=== PATIENT | male | born 1975 | race American Indian/Alaskan Native ===

== ENCOUNTER 2020-06-26 16:44 | Emergency (ER) | payer SELFPAY ==
[2020-06-26] MEDS ORDERED: ONDANSETRON 4 MG/2 ML INJ IV ONE ×2 (17:11→19:16)
[2020-06-26] MEDS ORDERED: SODIUM CHLORIDE 0.9% 1000 ML 1,000 ML IV ONE ×2 (17:11→19:07)
[2020-06-26] MEDS ORDERED: MORPHINE 4 MG/1 ML INJ IV ONE ×2 (17:16→19:40)
[2020-06-26] MEDS ORDERED: FAMOTIDINE 20 MG/2 ML INJ IV ONE (17:18)
--- NOTE | 2020-06-26 17:19 | Emergency Department Report ---
ED N/V/D HPI - General Chief complaint: Nausea/Vomiting/Diarrhea Stated complaint: N/V Time Seen by Provider: 06/26/20 17:10 Source: patient Mode of arrival: Stretcher Limitations: No Limitations - History of Present Illness Initial comments: 44-year-old male with a past medical history of HIV with undetectable viral load and compliant with antiretrovirals presents to the hospital with complaints of persistent nausea vomiting with p.o. intolerance since noon. Patient also having upper gastric pain described as a gas type pain that moves around his abdomen. Vomitus is primarily green he denies hematemesis, fever, dysuria, or diarrhea. He also denies previous abdominal surgeries. He looks uncomfortable and complaints of severe nausea with mild pain. - Related Data Previous Rx's Medication Instructions Recorded Last Taken Type Ondansetron [Zofran Odt] 4 mg PO Q8HR PRN #20 tab.rapdis 06/26/20 Unknown Rx Promethazine [Phenergan] 25 mg WA Q6HR PRN #20 supp.rect 06/26/20 Unknown Rx traMADoL [Ultram 50 MG tab] 50 mg PO Q6HR PRN #20 tablet 06/26/20 Unknown Rx Allergies Allergy/AdvReac Type Severity Reaction Status Date / Time aspirin Allergy Unknown Verified 06/26/20 17:07 ED Review of Systems ROS: Stated complaint: N/V Other details as noted in HPI Comment: All other systems reviewed and negative ED Past Medical Hx - Past Medical History Previous Medical History?: Yes Hx HIV: Yes - Social History Smoking Status: Current Every Day Smoker Substance Use Type: Alcohol - Medications Home Medications: Home Medications Medication Instructions Recorded Confirmed Last Taken Type Ondansetron [Zofran Odt] 4 mg PO Q8HR PRN #20 tab.rapdis 06/26/20 Unknown Rx Promethazine [Phenergan] 25 mg WA Q6HR PRN #20 supp.rect 06/26/20 Unknown Rx traMADoL [Ultram 50 MG tab] 50 mg PO Q6HR PRN #20 tablet 06/26/20 Unknown Rx ED Physical Exam - General Limitations: No Limitations - Other Other exam information: General: Mild distress secondary to pain Head: Atraumatic Eyes: normal appearance ENT: Moist mucous membranes Neck: Normal appearance, no midline tenderness Chest: Clear to auscultation bilaterally CV: Regular rate and rhythm Abdomen: Soft, normal bowel sounds, mild midabdominal tenderness and epigastric, nondistended, no rebound or guarding Back: Normal inspection Extremity: Normal inspection, full range of motion Neuro: Alert O x 3, no facial asymmetry, speech clear, no gross motor sensory deficit Psych: Appropriate behavior Skin: No rash ED Course Vital Signs 06/26/20 06/26/20 16:59 20:26 Temperature 97.5 F L Pulse Rate 93 H 68 Respiratory 22 16 Rate Blood Pressure 131/81 Blood Pressure 124/78 [Left] O2 Sat by Pulse 100 94 Oximetry ED Medical Decision Making - Lab Data Result diagrams: 06/26/20 17:50 06/26/20 17:50 Lab Results 06/26/20 06/26/20 06/26/20 Range/Units 17:50 17:50 19:49 WBC 6.4 (4.5-11.0) K/mm3 RBC 4.35 (3.65-5.03) M/mm3 Hgb 15.9 H (11.8-15.2) gm/dl Hct 43.5 (35.5-45.6) % MCV 100 H (84-94) fl MCH 37 H (28-32) pg MCHC 37 H (32-34) % RDW 13.1 L (13.2-15.2) % Plt Count 306 (140-440) K/mm3 Lymph % (Auto) 31.2 (13.4-35.0) % [place] % (Auto) 4.3 (0.0-7.3) % Eos % (Auto) 0.1 (0.0-4.3) % Baso % (Auto) 0.3 (0.0-1.8) % Lymph # (Auto) 2.0 (1.2-5.4) K/mm3 Clay # (Auto) 0.3 (0.0-0.8) K/mm3 Eos # (Auto) 0.0 (0.0-0.4) K/mm3 Baso # (Auto) 0.0 (0.0-0.1) K/mm3 Add Manual Diff Complete Seg Neutrophils % 65.6 (40.0-70.0) % Seg Neutrophils # 4.4 (1.8-7.7) K/mm3 Sodium 135 L (137-145) mmol/L Potassium 3.7 (3.6-5.0) mmol/L Chloride 97.8 L (98-107) mmol/L Carbon Dioxide 20 L (22-30) mmol/L Anion Gap 21 mmol/L BUN 10 (9-20) mg/dL Creatinine 1.0 (0.8-1.3) mg/dL Estimated GFR > 60 ml/min BUN/Creatinine Ratio 10 % Glucose 101 H (75-100) mg/dL Calcium 10.3 H (8.4-10.2) mg/dL Total Bilirubin 0.70 (0.1-1.2) mg/dL AST 17 (5-40) units/L ALT 11 (7-56) units/L Alkaline Phosphatase 87 (35-129) units/L Total Protein 7.8 (6.3-8.2) g/dL Albumin 4.2 (3.9-5) g/dL Albumin/Globulin Ratio 1.2 % Lipase 39 (13-60) units/L Urine Color Straw (Yellow) Urine Turbidity Clear (Clear) Urine pH 8.0 H (5.0-7.0) Ur Specific [place] 1.040 H (1.003-1.030) Urine Protein <15 mg/dl (Negative) mg/dL Urine Glucose (UA) Neg (Negative) mg/dL Urine Ketones 80 (Negative) mg/dL Urine Blood Neg (Negative) Urine Nitrite Neg (Negative) Urine Bilirubin Neg (Negative) Urine Urobilinogen < 2.0 (<2.0) mg/dL Ur Leukocyte Esterase Neg (Negative) Urine WBC (Auto) < 1.0 (0.0-6.0) /HPF Urine RBC (Auto) 1.0 (0.0-6.0) /HPF U Epithel Cells (Auto) < 1.0 (0-13.0) /HPF Urine Mucus Few /HPF - Radiology Data Radiology results: report reviewed CT ABDOMEN AND PELVIS WITH CONTRAST INDICATION / CLINICAL INFORMATION: n,v abd pain. TECHNIQUE: Axial CT images were obtained through the abdomen and pelvis after IV contrast. All CT scans at this location are performed using CT dose reduction for ALARA by means of automated exposure control. COMPARISON: None available. FINDINGS: LOWER CHEST: Bibasilar atelectasis. LIVER: No significant abnormality. GALLBLADDER: No significant abnormality. BILE DUCTS: No significant abnormality. PANCREAS: No significant abnormality. SPLEEN: No significant abnormality. ADRENALS: No significant abnormality. RIGHT KIDNEY / URETER: Nonobstructive 5 mm calcified right pelvicalyceal stone. No evidence of hydroureteronephrosis. LEFT KIDNEY / URETER: No significant abnormality. STOMACH / SMALL BOWEL: Small hiatal hernia. COLON: No significant abnormality. APPENDIX: No significant abnormality. PERITONEUM: No free fluid. No free air. No fluid collection. LYMPH NODES: No significant adenopathy. AORTA / ARTERIES: No significant abnormality. IVC / VEINS: No significant abnormality. URINARY BLADDER: No significant abnormality. REPRODUCTIVE ORGANS: Small right hydrocele. ADDITIONAL FINDINGS: None. SKELETAL SYSTEM: 1 cm sclerotic focus of the right iliac may be a large bone island. Follow-up imaging may be useful to determine stability. Left-sided pars defect at L5-S1. Multilevel degenerative changes are noted of the spine. IMPRESSION: 1. No significant acute abnormality. 2. Nonobstructive right 5 mm calcified pelvicalyceal stone. 3. The gallbladder and appendix are unremarkable. - Medical Decision Making pt required multiple doses of antiemetics, morphine, as well as normal saline for improvement in symptoms. Patient is feeling much better with ED treatment. Labs, UA, CT abdomen pelvis with IV contrast did not show any acute surgical or infectious abnormality. Patient tolerating fluid intake p.o. prior to discharge. Patient will be discharged with diagnosis of vomiting/gastroenteritis with subsequent dehydration and discharged home with symptomatic treatment Critical Care Time: No Critical care attestation.: If time is entered above; I have spent that time in minutes in the direct care of this critically ill patient, excluding procedure time. ED Disposition Clinical Impression: Vomiting, Dehydration, HIV (human immunodeficiency virus infection), Right kidney stone Disposition: DC- TO HOME OR SELFCARE Is pt being admited?: No Condition: Stable Instructions: Acute Nausea and Vomiting (ED), Kidney Stones (ED) Additional Instructions: Take the medication as prescribed. Follow-up with your doctor or doctor/clinic provided. Return if symptoms worsen as indicated by your discharge instructions. Take the copy of your CAT scan report to your follow-up visit with your primary care doctor. Also recommend that he follow-up with urologist regarding your kidney stone. Prescriptions: Promethazine [Phenergan] 25 mg WA Q6HR PRN #20 supp.rect PRN Reason: Nausea And Vomiting traMADoL [Ultram 50 MG tab] 50 mg PO Q6HR PRN #20 tablet PRN Reason: Pain Ondansetron [Zofran Odt] 4 mg PO Q8HR PRN #20 tab.rapdis PRN Reason: Nausea And Vomiting Referrals: PRIMARY CARE, [Primary Care Provider] - 3-5 Days [facility] [Provider Group] - 3-5 Days INOCENCIO PADILLA MD [Staff Physician] - 3-5 Days SARAY GOODMAN MD [Staff Physician] - 3-5 Days Time of Disposition: 22:24
[2020-06-26 18:06] LABS: Eosinophils % (Auto) 0.1 % (0.0-4.3); Monocytes # (Auto) 0.3 K/mm3 (0.0-0.8); Monocytes % (Auto) 4.3 % (0.0-7.3)
[2020-06-26 18:20] LABS: Alanine Aminotransferase 11 units/L (7-56); Albumin 4.2 g/dL (3.9-5); BUN/Creatinine Ratio 10; Blood Urea Nitrogen 10 mg/dL (9-20); Calcium 10.3 mg/dL (8.4-10.2); Hemolysis Index 4
[2020-06-26 18:52] LABS: Hemoglobin 15.9 gm/dl (11.8-15.2); Red Blood Count 4.35 M/mm3 (3.65-5.03)
[2020-06-26 18:53] LABS: Basophils % (Auto) 0.3 % (0.0-1.8); Hematocrit 43.5 % (35.5-45.6); Lymphocytes % (Auto) 31.2 % (13.4-35.0); Mean Corpuscular HGB Conc 37 % (32-34); Mean Corpuscular Volume 100 fl (84-94); Mean Platelet Volume 8.4 fl (6-12); Platelet Count 306 K/mm3 (140-440); Red Cell Distribution Width 13.1 % (13.2-15.2)
[2020-06-26] MEDS ORDERED: ONDANSETRON 4 MG/2 ML INJ ONE (19:18)
--- NOTE | 2020-06-26 20:07 | Cat Scan Report ---
CT ABDOMEN AND PELVIS WITH CONTRAST INDICATION / CLINICAL INFORMATION: n,v abd pain. TECHNIQUE: Axial CT images were obtained through the abdomen and pelvis after IV contrast. All CT scans at this location are performed using CT dose reduction for ALARA by means of automated exposure control. COMPARISON: None available. FINDINGS: LOWER CHEST: Bibasilar atelectasis. LIVER: No significant abnormality. GALLBLADDER: No significant abnormality. BILE DUCTS: No significant abnormality. PANCREAS: No significant abnormality. SPLEEN: No significant abnormality. ADRENALS: No significant abnormality. RIGHT KIDNEY / URETER: Nonobstructive 5 mm calcified right pelvicalyceal stone. No evidence of hydrou reteronephrosis. LEFT KIDNEY / URETER: No significant abnormality. STOMACH / SMALL BOWEL: Small hiatal hernia. COLON: No significant abnormality. APPENDIX: No significant abnormality. PERITONEUM: No free fluid. No free air. No fluid collection. LYMPH NODES: No significant adenopathy. AORTA / ARTERIES: No significant abnormality. IVC / VEINS: No significant abnormality. URINARY BLADDER: No significant abnormality. REPRODUCTIVE ORGANS: Small right hydrocele. ADDITIONAL FINDINGS: None. SKELETAL SYSTEM: 1 cm sclerotic focus of the right iliac may be a large bone island. Follow-up imagin g may be useful to determine stability. Left-sided pars defect at L5-S1. Multilevel degenerative orellana ges are noted of the spine. IMPRESSION: 1. No significant acute abnormality. 2. Nonobstructive right 5 mm calcified pelvicalyceal stone. 3. The gallbladder and appendix are unremarkable. Signer Name: Hiren Vasquez MD Signed: 06/26/2020 8:03 PM Workstation Name: [id number]
[2020-06-26 20:27] VITALS: BP 124/78
[2020-06-26 20:35] LABS: Bilirubin,Urine NEG (Negative); Blood,Urine NEG (Negative); Color,Urine Straw (Yellow); Mucus,Urine FEW /HPF; Protein,Urine <15 mg/dL mg/dL (Negative); Urobilinogen,Urine < 2.0 mg/dL (<2.0); WBC,Urine < 1.0 /HPF (0.0-6.0)
[2020-06-26] MEDS ORDERED: METOCLOPRAMIDE 10 MG/2 ML INJ IV ONE (21:10)
[2020-06-26] MEDS ORDERED: diphenhydrAMINE 50 MG/ML VIAL IV ONE (21:10)
== END 2020-06-26 23:04 | disposition home or self-care (01) ==
LOC: ED 16:44
DX: N20.0 Calculus of kidney (principal); B20 Human immunodeficiency virus [HIV] disease; E86.0 Dehydration; R11.2 Nausea with vomiting, unspecified; F17.200 Nicotine dependence, unspecified, uncomplicated; Z79.899 Other long term (current) drug therapy; Z88.6 Allergy status to analgesic agent
CPT/HCPCS: 36415; 74177; 80053; 81001; 83690; 85025; 96361; 96374; 96375; 96376; 99284; J1200; J2270; J2405; J2765; J7030; Q9967